=== PATIENT | female | born 1980 | race Caucasian/White ===

== ENCOUNTER 2021-11-01 20:19 | Emergency (ER) | payer MEDICAID, OTHER ==
[~2021-11-01] VITALS: Ht 157.5 cm; Wt 104.3 kg
--- NOTE | 2021-11-01 20:20 | NUR ---
41 y/o female was brought in by ambulance, patient has altered memory and does not remember what happened. she states she was only able to remember waking up in the ambulance and does not recall anything prior to that. patient assessed and padding on railing applied, seizure precautions initiated.
--- NOTE | 2021-11-01 20:23 | NUR ---
Dr Mckeon at bedside assessing patient
--- NOTE | 2021-11-01 20:30 | NUR ---
radiology took patient with lanre for imaging
[2021-11-01 20:55] LABS: HEMATOCRIT 36.6 % (31.2-41.9); MEAN CORPUSCULAR HEMOGLOBIN 30.6 uug (24.7-32.8); MEAN CORPUSCULAR VOLUME 90.4 fL (75.5-95.3); PLATELET COUNT (AUTO) 342 K/uL (179-408)
[2021-11-01 21:05] LABS: CARBON DIOXIDE 22 mmol/L (21-32); CHLORIDE 100 mmol/L (98-107); CREATININE 0.9 mg/dL (0.6-1.3); GLUCOSE 160 mg/dL (74-106); POTASSIUM 4.3 mmol/L (3.5-5.1); UREA NITROGEN, BLOOD 16 mg/dL (7-18)
[2021-11-01 21:10] LABS: ALANINE AMINOTRANSFERASE 26 U/L (14-59); ALKALINE PHOSPHATASE 96 U/L (50-136); ASPARTATE AMINOTRANSFERASE 14 U/L (15-37); BILIRUBIN,DIRECT < 0.1 mg/dL (0.0-0.2); BILIRUBIN,TOTAL 0.2 mg/dL (0.2-1.0); TOTAL PROTEIN, SERUM 8.4 g/dL (6.4-8.2)
[2021-11-01 21:40] LABS: *URINE HCG, QUAL NEGATIVE (NEGATIVE)
--- NOTE | 2021-11-01 23:30 | NUR ---
patient resting comfortably in the gurney with sister, awaiting results
--- NOTE | 2021-11-02 00:37 | NUR ---
Patient discharged to home in stable condition. Patients IV removed from left AC and gauze dressing applied. ID band removed. Written and verbal after care instructions given. Patient verbalizes understanding of instructions. Stressed follow up or return to ER for worsening s/s.
[2021-11-02 01:24] VITALS: BP 153/92
== END 2021-11-02 00:30 | disposition home or self-care (01) ==
LOC: ER 20:19
DX: R56.9 Unspecified convulsions (principal); E66.01 Morbid (severe) obesity due to excess calories; Z68.41 Body mass index [BMI] 40.0-44.9, adult; Z71.3 Dietary counseling and surveillance; K21.9 Gastro-esophageal reflux disease without esophagitis; R00.0 Tachycardia, unspecified; R73.9 Hyperglycemia, unspecified; S01.512A Laceration without foreign body of oral cavity, initial encounter; X58.XXXA Exposure to other specified factors, initial encounter; Y92.009 Unspecified place in unspecified non-institutional (private) residence as the place of occurrence of the external cause
CPT/HCPCS: 36415; 70450; 71045; 83735; 84703; 85025; 85730; 93005; A4663